=== PATIENT | female | born 1960 | race Caucasian/White ===

== ENCOUNTER 2019-02-21 08:02 | Day surgery (SDC) | payer BC ==
[~2019-02-21 08:02] MED LIST: Lactated Ringers 1,000 ML IV SCH; Lidocaine 1%/Sod Bicarbonate in NS 8.4% 1 ML Syringe IDERM PRN; Sodium Chloride 0.9% 10 ML Syringe FLUSH PRN
--- NOTE | 2019-02-21 08:33 | PCM.PREANE ---
Preanesthetic Assessment - Procedure Proposed Procedure: subfascal mid urethral sling - Anesthesia/Transfusion/Family Hx Anesthesia History: Prior Anesthesia Without Reaction (sometimes bp is low) Family History of Anesthesia Reaction: No Transfusion History: No Prior Transfusion(s) - Review of Systems General: No Symptoms Pulmonary: No Symptoms Cardiovascular: No Symptoms Gastrointestinal: Abdominal Pain (left lower abd pain from rectal prolapse surgery) Neurological: No Symptoms, Numbness (down left leg and foot) Other: Reports: None, Depression, Anxiety - Physical Assessment NPO Status Date: 02/20/19 (sip with meds this am) NPO Status Time: 21:30 Pulse: 67 O2 Sat by Pulse Oximetry: 96 Respiratory Rate: 16 Blood Pressure: 102/37 Temperature: 97.5 F Height: 5 ft 10 in Weight: 63 kg ASA Class: 2 Mental Status: Alert & Oriented x3 Airway Class: Mallampati = 1 Dentition: Reports: Normal Dentition Thyro-Mental Finger Breadths: 3 Mouth Opening Finger Breadths: 3 ROM/Head Extension: Full Lungs: Clear to Auscultation, Normal Respiratory Effort Cardiovascular: Regular Rate, Regular Rhythm, Murmurs - Lab Values: Laboratory Last Values WBC 5.79 K/mm3 (3.98-10.04) 02/19/19 09:08 RBC 3.83 M/mm3 (3.98-5.22) L 02/19/19 09:08 Hgb 11.9 gm/L (11.2-15.7) 02/19/19 09:08 Hct 35.8 % (34.1-44.9) 02/19/19 09:08 MCV 93.5 fl (79.4-94.8) 02/19/19 09:08 MCH 31.1 pg (25.6-32.2) 02/19/19 09:08 MCHC 33.2 g/dl (32.2-35.5) 02/19/19 09:08 RDW Std Deviation 46.0 fL (36.4-46.3) 02/19/19 09:08 Plt Count 198 K/mm3 (182-369) 02/19/19 09:08 MPV 12.0 fl (9.4-12.3) 02/19/19 09:08 Neut % (Auto) 64.5 % (34.0-71.1) 02/19/19 09:08 Lymph % (Auto) 23.5 % (19.3-51.7) 02/19/19 09:08 [place] % (Auto) 7.6 % (4.7-12.5) 02/19/19 09:08 Eos % (Auto) 4.1 (0.7-5.8) 02/19/19 09:08 Baso % (Auto) 0.3 % (0.1-1.2) 02/19/19 09:08 Neut # (Auto) 3.73 K/mm3 (1.56-6.13) 02/19/19 09:08 Lymph # (Auto) 1.36 K/mm3 (1.18-3.74) 02/19/19 09:08 [place] # (Auto) 0.44 K/mm3 (0.24-0.36) H 02/19/19 09:08 Eos # (Auto) 0.24 K/mm3 (0.04-0.36) 02/19/19 09:08 Baso # (Auto) 0.02 K/mm3 (0.01-0.08) 02/19/19 09:08 Creatinine 0.9 mg/dL (0.55-1.02) 02/19/19 09:08 Est Cr Clr Drug Dosing TNP 02/19/19 09:08 Estimated GFR (MDRD) > 60 mL/min (>60) 02/19/19 09:08 Urine Color Yellow (Yellow) 02/19/19 09:08 Urine Appearance Clear (Clear) 02/19/19 09:08 Urine pH 6.0 (5.0-8.0) 02/19/19 09:08 Ur Specific [place] > or = 1.030 (1.005-1.030) 02/19/19 09:08 Urine Protein 1+ (Negative) H 02/19/19 09:08 Urine Glucose (UA) Negative (Negative) 02/19/19 09:08 Urine Ketones Negative (Negative) 02/19/19 09:08 Urine Occult Blood Trace-lysed (Negative) H 02/19/19 09:08 Urine Nitrite Negative (Negative) 02/19/19 09:08 Urine Bilirubin 1+ (Negative) H 02/19/19 09:08 Urine Urobilinogen 1.0 (0.2-1.0) 02/19/19 09:08 Ur Leukocyte Esterase Negative (Negative) 02/19/19 09:08 - Allergies Allergies/Adverse Reactions: Allergies Allergy/AdvReac Type Severity Reaction Status Date / Time No Known Allergies Allergy Verified 02/20/19 14:34 - Blood Blood Available: No - Anesthesia Plan Pre-Op Medication Ordered: Beta Gianna Beta Gianna: Metoprolol Med Last Dose Date: 02/21/19 Med Last Dose Time: 06:30 - Acknowledgements Anesthesia Type Planned: General Anesthesia Pt an Appropriate Candidate for the Planned Anesthesia: Yes Alternatives and Risks of Anesthesia Discussed w Pt/Guardian: Yes Pt/Guardian Understands and Agrees with Anesthesia Plan: Yes PreAnesthesia Questionnaire HEENT History: Reports: None Cardiovascular History: Reports: Other (See Below) Other Cardiovascular History: mitral valve repair, aflutter, bacterial endocarditis, DVT, angiogram Respiratory History: Reports: None Gastrointestinal History: Reports: None, Other (See Below) Other Gastrointestinal History: gastric ulcer,rectal prolapse with repair Genitourinary History: Reports: Other (See Below) Other Genitourinary History: hematuria, breast implants 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: Reports: None Musculoskeletal History: Reports: Other (See Below) Other Musculoskeletal History: bilateral carpal tunnel syndrom, right hand degenerative joint disease, lumbar facet arthritis, sciatica, lumbar disc bulge Neurological History: Reports: Migraines, Other (See Below) Other Neuro History: lumbar degenerative disc disease, scoliosis, radicular lumbar pain Psychiatric History: Reports: Anxiety, Depression Endocrine/Metabolic History: Reports: None, Osteopenia Hematologic History: Reports: Other (See Below) Other Hematologic History: blood clotting disorder Immunologic History: Reports: None Oncologic (Cancer) History: Reports: None Dermatologic History: Reports: None - Past Surgical History Head Surgeries/Procedures: Reports: None HEENT Surgical History: Reports: LASIK Cardiovascular Surgical History: Reports: Other (See Below) (mitral valve repair 2001) Respiratory Surgical History: Reports: None GI Surgical History: Reports: Appendectomy, Colonoscopy, EGD Female Surgical History: Reports: None, Breast Implant, Cystoscopy, Tubal Ligation Endocrine Surgical History: Reports: None Neurological Surgical History: Reports: None Musculoskeletal Surgical History: Reports: Carpal Tunnel, Other (See Below) Other Musculoskeletal Surgeries/Procedures:: right and left carpal tunnel release, bunionectomy Oncologic Surgical History: Reports: None Dermatological Surgical History: Reports: None - SUBSTANCE USE Smoking Status *Q: Former Smoker (quit 1994) Tobacco Use Within Last Twelve Months: No Second Hand Smoke Exposure: No Days Per Week of Alcohol Use: 1 (rare) Recreational Drug Use History: No - HOME MEDS Home Medications: Home Meds [place]-3 Fatty Acids/Fish Oil [Fish Oil Softgel] 2,000 mg PO DAILY 10/04/14 [ History] Omeprazole 20 mg PO ASDIRECTED 10/04/14 [History] Zolpidem [Ambien] 10 mg PO BEDTIME PRN 10/04/14 [History] Aspirin [Halfprin] 81 mg PO DAILY 09/26/18 [History] Fluticasone Propionate [Flonase] 1 dose NASBOTH DAILY 09/26/18 [History] Estrogens, Conjugated [Premarin Vaginal Crm] 1 dose VAG BEDTIME 02/20/19 [ History] Gabapentin [Neurontin] 300 mg PO Q12H 02/20/19 [History] Metoprolol Tartrate 50 mg PO BID 02/20/19 [History] Polyvinyl Alcohol/Povidone [[place] Eye Drops] 1 drop EYEBOTH TID 02/20/19 [ History] Rosuvastatin [Crestor] 10 mg PO DAILY 02/20/19 [History] buPROPion [Wellbutrin SR] 300 mg PO DAILY 02/20/19 [History] - CURRENT (IN HOUSE) MEDS Current Meds: Current Medications Lactated Ringer's (Ringers, Lactated) 1,000 mls @ 125 mls/hr IV ASDIRECTED [place] Lidocaine/Sodium Bicarbonate (Buffered Lidocaine 1% In Ns 8.4%) 0.25 ml IDERM ONETIME PRN PRN Reason: Prior to IV Start Sodium Chloride (Saline Flush) 10 ml FLUSH ASDIRECTED PRN PRN Reason: Keep Vein Open Stop: 02/21/19 23:00
[2019-02-21] MEDS ORDERED: Lidocaine 1% with EPINEPHrine 1:100,000 20 ML MDV ONE (09:33)
[2019-02-21] MEDS ORDERED: Lactated Ringers 1,000 ML ONE (09:37)
[2019-02-21] MEDS ORDERED: ceFAZolin 1 GM Vial ONE (09:37)
[2019-02-21] MEDS ORDERED: Propofol 200 MG/20 ML SDV ONE (09:37)
[2019-02-21] MEDS ORDERED: Ondansetron 4 MG/2 ML SDV ONE ×2 (09:37→10:05)
[2019-02-21] MEDS ORDERED: Lidocaine 1% 4 ML ONE (09:37)
[2019-02-21] MEDS ORDERED: Rocuronium 50 MG/5 ML Vial ONE (09:37)
[2019-02-21] MEDS ORDERED: fentaNYL 250 MCG/5 ML SDV ONE (09:38)
[2019-02-21] MEDS ORDERED: Midazolam 1 MG/ML 2 ML SDV ONE (09:38)
[2019-02-21] MEDS ORDERED: ePHEDrine/Normal Saline 25 MG/5 ML Syringe ONE (09:59)
[2019-02-21] MEDS ORDERED: Dexamethasone 4 MG/ML 5 ML MDV ONE (10:05)
[2019-02-21] MEDS: Sodium Chloride 0.9% 50 ML SDV ONE ×2 (10:19→10:20)
[2019-02-21] MEDS ORDERED: Neostigmine Methylsulfate 1 MG/ML 5 ML Syringe ONE (10:26)
[2019-02-21] MEDS ORDERED: Acetaminophen/oxyCODONE 325-5 MG Tab PO PRN (10:28)
--- NOTE | 2019-02-21 10:33 | PCM.OPNOTE ---
- General Post-Op/Procedure Note Date of Surgery/Procedure: 02/21/19 Operative Procedure(s): Subfascial mid-urethral sling Findings: Grade 1 cystocele, grade 1 uterine descensus, grade 1 rectocele Pre Op Diagnosis: Stress urinary incontinence Post-Op Diagnosis: Same Anesthesia Technique: General ET Tube Other Anesthesia Type: Lidocaine quarter percent with [id number] mL total Primary Surgeon: Nik Gallegos Anesthesia Provider: Rosmery Murphy Fluid Replacement, Intraop: 1,200 EBL in mLs: 5 Complications: None Condition: Good Free Text/Narrative:: Surgery duration: 15 minutes Procedure: The patient was taken the operating room and placed in supine position on the operating table. She was adequately consented for the procedure. She was given 2 g of Ancef preoperatively for infection prophylaxis and had sequential compression stockings in place for DVT prophylaxis. She had voided electron microscopist to the operating room. She was given general endotracheal anesthesia. She was placed in the dorsal lithotomy position. Her bladder was again drained with a red rubber catheter. A few cc of normal urine were removed. The epithelium overlying the urethra was grasped approximately 1 cm from the urethral meatus and approximately 2 cm cephalad from there with Allis clamps. The area of the skin overlying the medial aspect of the obturator foramen on each side just posterior to the origin the abductor longus muscle was marked with a marking pen. These 2 areas and the sub-fascial layer of the vaginal were then infiltrated with lidocaine quarter percent with epinephrinetotal of approximately 10 mL was used. incisions made in the epithelium overlying the urethra and 2 small stab wounds 3 mm in length were made in the 2 areas of the panty line of the patient. The subfascial planes were adequately dissected bilaterally to allow placement of the mesh. The helical adapter was then placed through the obturator on patient's left side, then brought out through the vaginal subfascial plane. Mesh was attached to it and then was pulled back through the obturator foramen. Same was done on the right side. Mesh was then snugged up to 8 Dilator 15 mm in diameter which was was used as a spacer to place the mesh in a tension-free position. At this point the mesh was cut off at the skin surface and the dilator was removed. The midline epithelium was closed with a short running suture of 3-0 Monocryl. Skin incisions were closed with Dermabond skin glue. These bladder was filled with approximately 240 cc of normal saline to facilitate voiding and therefore discharged home. The patient was returned to supine position, awakened from general endotracheal anesthesia and was discharged from operating room in good condition
[2019-02-21] MEDS ORDERED: Ketorolac 30 MG/ML SDV ONE (10:34)
[2019-02-21] MEDS ORDERED: fentaNYL 100 MCG/2 ML SDV IVPUSH PRN (10:47)
[2019-02-21] MEDS ORDERED: Ondansetron 4 MG/2 ML SDV IVPUSH PRN (10:47)
--- NOTE | 2019-02-21 10:49 | PCM.POSTAN ---
POST ANESTHESIA ASSESSMENT - MENTAL STATUS Mental Status: Alert, Oriented - VITAL SIGNS Pulse Rate: 68 SaO2: 96 Resp Rate: 13 Blood Pressure: 89/61 Temperature: 37.5 C - RESPIRATORY Respiratory Status: Respiratory Rate WNL, Airway Patent, O2 Saturation Stable, Supplemental Oxygen - CARDIOVASCULAR CV Status: Pulse Rate WNL, Blood Pressure Stable - GASTROINTESTINAL GI Status: No Symptoms - PAIN Pain Score: 0 - POST OP HYDRATION Hydration Status: Adequate & Stable
--- NOTE | 2019-02-21 12:41 | PCM48HPAN ---
Post Anesthesia Note - EVALUATION WITHIN 48HRS OF ANESTHETIC Vital Signs in Normal Range: Yes Patient Participated in Evaluation: Yes Respiratory Function Stable: Yes Airway Patent: Yes Cardiovascular Function Stable: Yes Hydration Status Stable: Yes Pain Control Satisfactory: Yes Nausea and Vomiting Control Satisfactory: Yes Mental Status Recovered: Yes
[2019-02-21 13:23] VITALS: BP 108/35
== END 2019-02-21 12:23 | disposition home or self-care (01) ==
LOC: JD.SDS 08:02
PROVIDERS: ATTEND Obstetrics & Gynecology
DX: N39.3 Stress incontinence (female) (male) (principal); N81.2 Incomplete uterovaginal prolapse; N36.2 Urethral caruncle; E78.00 Pure hypercholesterolemia, unspecified; G43.909 Migraine, unspecified, not intractable, without status migrainosus; F32.9 Major depressive disorder, single episode, unspecified; F41.9 Anxiety disorder, unspecified; Z79.82 Long term (current) use of aspirin; Z79.899 Other long term (current) drug therapy; Z87.891 Personal history of nicotine dependence
CPT/HCPCS: 36415; 57288; 81003; 82565; 85025; J0690; J1100; J1885; J2001; J2250; J2405; J2704; J2710; J3010; J7050; J7120; 00860; C1771

== ENCOUNTER 2020-04-12 06:03 | Emergency (ER) | payer BC ==
[2020-04-12 06:23] VITALS: BP 134/76; PULSE 101
--- NOTE | 2020-04-12 06:52 | EDM.PDOC ---
ED HPI GENERAL MEDICAL PROBLEM - General Chief Complaint: Chest Pain Stated Complaint: HEART PALPITATIONS/POST HEART SURGERY Time Seen by Provider: 04/12/20 06:20 Source of Information: Reports: Patient, Family () History Limitations: Reports: No Limitations - History of Present Illness INITIAL COMMENTS - FREE TEXT/NARRATIVE: Mrs. 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 She was discharged home on 04/06/2020. She now presents to the ED stating that she was awoken at 02:00 this morning with pressure felt across her chest, dyspnea, and irregular palpitations. No diaphoresis, nausea, or sense of impending doom. No prior similar symptoms. The patient states that she had taken a Tylenol around 01:45 for a slight headache, but did not take any medications after the onset of her acute symptoms. Here in the ED, the patient is found to be slightly tachycardic at 101 bpm, and slightly tachypneic at 22rpm. She is afebrile, saturating 96% on room air. Other than recent constipation, the patient denies recent fever, chills, sore throat, ear pain, nasal or sinus congestion, cough, dyspnea, chest pain, palpitations, nausea, vomiting, diarrhea, abdominal pain, urinary symptoms, recent weight gain or weight loss, recent bloody bowel movements or black bowel movements, recent joint aches, headaches, or rashes. The patient's PCP is Dr. Maia Olivera. Her Cushion Sewer is Dr. Boyd Burk. Her Cardiothoracic Surgeon is Dr. Nael Hancock. Her pain manager of environmental services is Dr. Abhay Quiroz. Treatments CRATE TIER: Reports: Acetaminophen Mid-Sternal Chest Pain Score (Numeric/FACES): 5 - Related Data Allergies Allergy/AdvReac Type Severity Reaction Status Date / Time No Known Allergies Allergy Verified 04/12/20 06:13 Home Meds: Home Meds [place]-3 Fatty Acids/Fish Oil [Fish Oil Softgel] 2,000 mg PO DAILY 10/04/14 [History] Omeprazole 20 mg PO ASDIRECTED 10/04/14 [History] Zolpidem [Ambien] 10 mg PO BEDTIME PRN 10/04/14 [History] Aspirin [Halfprin] 81 mg PO DAILY 09/26/18 [History] Fluticasone Propionate [Flonase] 1 dose NASBOTH DAILY 09/26/18 [History] Estrogens, Conjugated [Premarin Vaginal Crm] 1 dose VAG BEDTIME 02/20/19 [History] Rosuvastatin [Crestor] 10 mg PO DAILY 02/20/19 [History] buPROPion [Wellbutrin SR] 300 mg PO DAILY 02/20/19 [History] Acetaminophen/oxyCODONE [Percocet 325-5 MG] 1 tab PO Q4H PRN tablet 02/21/19 [R x] Ibuprofen 600 mg PO Q4HR PRN #30 tablet 02/21/19 [Rx] Past Medical History Cardiovascular History: Reports: Blood Clots/VTE/DVT (upper extremity x 2, assoc w/ PICC lines), High Cholesterol, Other (See Below) (Endocarditis 2001, 2009) Gastrointestinal History: Reports: PUD, Other (See Below) (Rectal prolapse, s/p repair) Musculoskeletal History: Reports: Back Pain, Chronic (Scoliosis due to DDD) Psychiatric History: Reports: Anxiety, Depression Endocrine/Metabolic History: Reports: Osteopenia (untreated) - Past Surgical History HEENT Surgical History: Reports: HERLINDA Cardiovascular Surgical History: Reports: Cardiac Ablation (for A-flutter, 03/22/[address], [facility]), Valve Replacement (bovine mitral valve, 03/22/2020, [facility]), Other (See Below) (Mitral valve repair 2001, Tricuspid valve repair 03/22/[address], [facility] [place]. Coroonary angiogram x 2.) GI Surgical History: Reports: Appendectomy, Colonoscopy, EGD Female Surgical History: Reports: Breast Implant (bilateral), Cystoscopy, Tubal Ligation, Other (See Below) (Bladder sling) Musculoskeletal Surgical History: Reports: Carpal Tunnel (bilateral) Social & Family History - Family History Family Medical History: Noncontributory - Tobacco Use Smoking Status *Q: Former Smoker Years of Tobacco use: 12 Packs/Tins Daily: 2 Month/Year Tobacco Last Used: Quit Oct 1991 Second Hand Smoke Exposure: No - Caffeine Use Caffeine Use: Reports: None - Alcohol Use Alcohol Use History: Yes Alcohol Use Frequency: Socially - Recreational Drug Use Recreational Drug Use: No - Living Situation & Occupation Living situation: Reports: , with Spouse 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 ED EXAM, GENERAL - Physical Exam Exam: See Below Exam Limited By: No Limitations General Appearance: Alert, WD/WN, No Apparent Distress Eye Exam: Bilateral Eye: EOMI, Normal Inspection Ears: Normal External Exam, Hearing Grossly Normal Nose: Normal Inspection Throat/Mouth: Normal Inspection, Normal Lips, Normal Voice, No Airway Compromise Head: Atraumatic, Normocephalic Neck: Normal Inspection, Full Range of Motion Respiratory/Chest: No Respiratory Distress, Lungs Clear, Normal Breath Sounds, No Accessory Muscle Use Cardiovascular: Normal Peripheral Pulses, No Edema, No Gallop, No JVD, No Murmur, No Rub, Other (Regularly irregular) Peripheral Pulses: 3+: Radial (L), Radial (R) GI/Abdominal: Normal Bowel Sounds, Soft, Non-Tender, No Organomegaly, No Distention, No Abnormal Bruit, No Mass (Female) Exam: Deferred Rectal (Female) Exam: Deferred Back Exam: Normal Inspection, Full Range of Motion, NT Extremities: Normal Inspection, Normal Range of Motion, No Pedal Edema, Normal Capillary Refill Neurological: Alert, Oriented, Normal Cognition, No Motor/Sensory Deficits Psychiatric: Normal Affect Skin Exam: Warm, Dry, Intact, Normal Color, No Rash EKG INTERPRETATION EKG Date: 04/12/20 Time: 06:12 Rhythm: NSR (with bigeminy) Rate (Beats/Min): 99 [place]: Normal P-Wave: Present (Short MO interval) QRS: RBBB (Early transition) ST-T: Normal (ST depressions and T-wave inversions V2-V5) QT: Prolonged (QTc 506 ms) Comparison: Change From Previous EKG (Was in NSR on 02/21/2019) Course - Vital Signs Last Recorded V/S: Last Vital Signs Temp 36.4 C 04/12/20 06:15 Pulse 101 H 04/12/20 06:15 Resp 22 H 04/12/20 06:15 BP 134/76 04/12/20 06:15 Pulse Ox 96 04/12/20 06:15 - Orders/Labs/Meds Orders: Active Orders 24 hr Category Date Time Status EKG Documentation Completion [RC] STAT Care 04/12/20 06:13 Active Sodium Chloride 0.9% [Normal Saline] 1,000 ml Med 04/12/20 07:30 Active IV ASDIRECTED Sodium Chloride 0.9% [Normal Saline] 100 ml Med 04/12/20 08:15 Active IV ASDIRECTED Sodium Chloride 0.9% [Saline Flush] Med 04/12/20 08:02 Active 10 ml FLUSH ONETIME PRN Medication Orders Sodium Chloride (Normal Saline) 1,000 mls @ 150 mls/hr IV ASDIRECTED SALENA Last Admin: 04/12/20 08:07 Dose: 150 mls/hr Documented by: CHANI Sodium Chloride (Normal Saline) 100 mls @ 75 mls/hr IV ASDIRECTED [place] Last Admin: 04/12/20 08:18 Dose: 75 mls/hr Documented by: LC Sodium Chloride (Saline Flush) 10 ml FLUSH ONETIME PRN PRN Reason: IV FLUSH Last Admin: 04/12/20 08:18 Dose: 10 ml Documented by: LC Labs: Laboratory Tests 04/12/20 04/12/20 04/12/20 Range/Units 07:11 07:11 07:11 WBC 6.66 (3.98-10.04) K/mm3 RBC 3.39 L (3.98-5.22) M/mm3 Hgb 9.6 L D (11.2-15.7) gm/dl Hct 31.9 L (34.1-44.9) % MCV 94.1 (79.4-94.8) fl MCH 28.3 (25.6-32.2) pg MCHC 30.1 L (32.2-35.5) g/dl RDW Std Deviation 51.6 H (36.4-46.3) fL Plt Count 302 D (182-369) K/mm3 MPV 8.9 L (9.4-12.3) fl Neutrophils % (Manual) 73 H (40-60) % Band Neutrophils % 0 (0-10) % Lymphocytes % (Manual) 10 L (20-40) % Atypical Lymphs % 0 % Monocytes % (Manual) 6 (2-10) % Eosinophils % (Manual) 11 H (0.7-5.8) % Basophils % (Manual) 0 L (0.1-1.2) Toxic Granulation Platelet Estimate Adequate Plt Morphology Comment Normal Hypochromasia 2+ moderate RBC Morph Comment Normal PT 10.9 (9.7-12.0) SECONDS INR 1.00 Sodium 140 (136-145) mEq/L Potassium 3.7 (3.5-5.1) mEq/L Chloride 104 (98-107) mEq/L Carbon Dioxide 25 (21-32) mEq/L Anion Gap 14.7 (5-15) BUN 11 (7-18) mg/dL Creatinine 0.7 (0.55-1.02) mg/dL Est Cr Clr Drug Dosing 86.52 mL/min Estimated GFR (MDRD) > 60 (>60) mL/min BUN/Creatinine Ratio 15.7 (14-18) Glucose 86 (80-115) mg/dL Calcium 8.8 (8.5-10.1) mg/dL Magnesium 1.9 (1.8-2.4) mg/dl Total Bilirubin 0.5 (0.2-1.0) mg/dL AST 23 (15-37) U/L ALT 47 (14-59) U/L Alkaline Phosphatase 185 H (46-116) U/L Troponin I 0.180 H* (0.00-0.056) ng/mL Total Protein 6.5 (6.4-8.2) g/dl Albumin 3.2 L (3.4-5.0) g/dl Globulin 3.3 gm/dL Albumin/Globulin Ratio 1.0 (1-2) Meds: Medications Generic Name Dose Route Start Last Admin Trade Name Freq PRN Reason Stop Dose Admin Sodium Chloride 1,000 mls @ 150 mls/hr 04/12/20 07:30 04/12/20 08:07 Normal Saline IV 150 mls/hr ASDIRECTED SALENA Administration Sodium Chloride 100 mls @ 75 mls/hr 04/12/20 08:15 04/12/20 08:18 Normal Saline IV 75 mls/hr ASDIRECTED [place] Administration Sodium Chloride 10 ml 04/12/20 08:02 04/12/20 08:18 Saline Flush FLUSH 10 ml ONETIME PRN Administration IV FLUSH Discontinued Medications Generic Name Dose Route Start Last Admin Trade Name Walker PRN Reason Stop Dose Admin Acetaminophen 650 mg 04/12/20 08:54 04/12/20 09:04 Tylenol PO 04/12/20 08:55 650 mg NOW ONE Administration Iopamidol 100 ml 04/12/20 08:02 04/12/20 08:18 Isovue-370 (76%) IVPUSH 04/12/20 08:03 100 ml ONETIME ONE Administration - Re-Assessments/Exams Free Text/Narrative Re-Assessment/Exam: 04/12/20 06:48 As above, the patient underwent a bovine mitral valve replacement, along with a tricuspid repair and ablation for atrial flutter on 03/22/2020. She now presents with irregular palpitations, chest pressure felt across her chest, and dyspnea. An ECG obtained at triage demonstrates rate controlled bigeminy. The likelihood of an acute coronary event is extremely small, as she had a clean coronary angiogram about a week prior to her cardiac surgery. I have ordered a work-up that includes blood work, a chest x-ray, and an ECG. 04/12/20 07:21 Because the patient recently underwent surgery, her d-dimer would be elevated and non-diagnostic, therefore I did not order a d-dimer, however, upon considering the case, we need to rule out a PE as the cause of her current symptoms. I have therefore ordered a CT angiogram of the chest, along with IV fluid. 04/12/20 08:02 2-view chest radiograph is read by Dr. Maurer as: 1. Small bilateral pleural effusions which are similar to prior chest x-ray. 2. Interval placement of prosthetic heart valves. 04/12/20 08:41 CT angiogram of the chest is read by Dr. Maurer as: 1. No findings of pulmonary embolism. 2. Prosthetic heart valves and sternotomy wires. 3. Bilateral pleural effusions which mostly appear to be loculated. 4. Bibasilar atelectasis. 04/12/20 09:42 The patient's INR returned subtherapeutic at 1.00. Discussed with Bette at [facility] at 09:29. Case then discussed with Dr. Burk, the patient's Cushion Sewer, at 09:33. He stated that the bigeminy is to be expected following the type of surgery that she had, and not to worry about it. He agreed that the patient's mildly elevated troponin is simply a remnant from her recent surgery. He noted that the patient is on amiodarone, which she should continue on, however, he is not happy that her INR is subtherapeutic. He asked that the patient call his nurse this afternoon, and he will take over the management of her Coumadin. When she calls, she is to have all of her medications in front of her. He will also go over an appropriate diet that she should be eating while on Coumadin. 04/12/20 09:53 Test results and my conversation with Dr. Burk discussed with the patient and her . As above, I will discharge the patient home. She is not to worry about her bigeminy or chest discomfort. She is to continue her current medications, as prescribed, presently. She is to call Dr. Burk's nurse this afternoon, in order to arrange for their taking over management of her Coumadin, and when she calls, she is to have all of her medications in front of her. The patient expressed understanding. Departure - Departure Time of Disposition: 09:54 Disposition: Home, Self-Care 01 Condition: Good Clinical Impression: Bigeminy, Musculoskeletal chest pain, Subtherapeutic international normalized ratio (INR) Referrals: Maia Olivera MD [Primary Care Provider] - Boyd Burk MD [Ordering Only Provider] - Abhay Quiroz MD [Physician] - Nael Hancock IV, MD [Ordering Only Provider] - Forms: ED Department Discharge Additional Instructions: You were seen in the emergency room after developing chest pressure, as of breath, and irregular palpitations. Work-up in the ER included blood work, a chest x-ray, a CT angiogram of your chest, and an ECG. Your work-up found that you are in bigeminy (where your heartbeats 1 normal beat, followed by a PVC, followed by a normal beat, followed by PVC, etc.) and your INR was found to be subtherapeutic at 1.00. The remainder of your work-up was unremarkable. Your case was discussed with your Cushion Sewer Dr. Burk. He recommended the followin. The bigeminy and chest discomfort are to be expected following the type of surgery that you had. 2. He recommended that you continue to take the medications that you are currently prescribed. 3. He would like to take over the management of your Coumadin. You are to call his nurse this afternoon to make such arrangements. He may wind up talking to himself tomorrow. If any other problems, please do not hesitate to return to the ER. Sepsis Event Note (ED) - Evaluation Sepsis Screening Result: No Definite Risk - Focused Exam Vital Signs: Vital Signs Temp Pulse Resp BP Pulse Ox 04/12/20 06:15 36.4 C 101 H 22 H 134/76 96 - My Orders Last 24 Hours: My Active Orders 04/12/20 06:13 EKG Documentation Completion [RC] STAT 04/12/20 07:30 Sodium Chloride 0.9% [Normal Saline] 1,000 ml IV ASDIRECTED 04/12/20 08:02 Sodium Chloride 0.9% [Saline Flush] 10 ml FLUSH ONETIME PRN 04/12/20 08:15 Sodium Chloride 0.9% [Normal Saline] 100 ml IV ASDIRECTED - Assessment/Plan Last 24 Hours: My Active Orders 04/12/20 06:13 EKG Documentation Completion [RC] STAT 04/12/20 07:30 Sodium Chloride 0.9% [Normal Saline] 1,000 ml IV ASDIRECTED 04/12/20 08:02 Sodium Chloride 0.9% [Saline Flush] 10 ml FLUSH ONETIME PRN 04/12/20 08:15 Sodium Chloride 0.9% [Normal Saline] 100 ml IV ASDIRECTED
[2020-04-12] MEDS ORDERED: Sodium Chloride 0.9% 1,000 ML IV SCH (07:30)
--- NOTE | 2020-04-12 07:48 | CR ---
Chest: PA and lateral views of the chest were obtained. Comparison: Prior chest x-ray of 09/21/10. Bilateral pleural effusions are seen. Findings are fairly stable from previous exam. Heart size and mediastinum are normal. Bony structures are within normal limits for the patient's age. 2 prosthetic heart valves are seen. Sternotomy wires are noted. Impression: 1. Small bilateral pleural effusions which are similar to prior chest x-ray. 2. Interval placement of prosthetic heart valves. Diagnostic code #3 This report was dictated in MDT
[2020-04-12] MEDS ORDERED: Iopamidol 755 Mg/ML 100 ML Bottle IVPUSH ONE (08:02)
[2020-04-12] MEDS ORDERED: Sodium Chloride 0.9% 10 ML Syringe FLUSH PRN (08:02)
[2020-04-12] MEDS ORDERED: Sodium Chloride 0.9% 100 ML IV SCH (08:15)
--- NOTE | 2020-04-12 08:37 | CT ---
CT chest Technique: Multiple axial sections of the chest were obtained. Intravenous contrast was utilized. Study has been performed as a pulmonary angiogram protocol. Findings: Previous sternotomy is noted with prosthetic heart valves. Bilateral pleural effusions are seen which mostly appear to be loculated. Pulmonary arteries are well-opacified. No filling defects are seen to indicate pulmonary embolism. Mediastinum and hilar regions show no adenopathy. No axillary adenopathy is seen. Bilateral breast prosthesis are noted. Visualized upper abdominal structures shows no discrete abnormality. Mild bibasilar atelectasis is noted. Lungs otherwise are clear. Bone window settings were reviewed. No acute osseous finding is seen. Impression: 1. No findings of pulmonary embolism. 2. Prosthetic heart valves and sternotomy wires. 3. Bilateral pleural effusions which mostly appear to be loculated. 4. Bibasilar atelectasis. Diagnostic code #3 Study was dictated in MDT
[2020-04-12] MEDS ORDERED: Acetaminophen 325 MG Tab PO ONE (08:54)
== END 2020-04-12 10:08 | disposition home or self-care (01) ==
LOC: JD.ED 06:03
DX: R07.89 Other chest pain (principal); R00.8 Other abnormalities of heart beat; R79.1 Abnormal coagulation profile; F41.9 Anxiety disorder, unspecified; F32.9 Major depressive disorder, single episode, unspecified; Z87.11 Personal history of peptic ulcer disease; Z87.891 Personal history of nicotine dependence; Z79.899 Other long term (current) drug therapy; Z79.82 Long term (current) use of aspirin; Z86.718 Personal history of other venous thrombosis and embolism
CPT/HCPCS: 36415; 71046; 71275; 80053; 83735; 84484; 85007; 85027; 85610; 93005; 96360; 96361; 99285; A9270; J7030; J7050; Q9967

== ENCOUNTER 2022-06-29 09:16 | Day surgery (SDC) | payer BC ==
[~2022-06-29 09:16] MED LIST changes: +Sodium Chloride 0.9% 10 ML Syringe FLUSH SCH
[2022-06-29] MEDS ORDERED: Ondansetron 4 MG/2 ML SDV IVPUSH PRN (10:10)
[2022-06-29] MEDS ORDERED: fentaNYL 100 MCG/2 ML SDV IVPUSH PRN (10:10)
[2022-06-29 10:54] VITALS: PULSE 60
[2022-06-29] MEDS ORDERED: Lidocaine 1% 10 ML MDV ONE (11:19)
[2022-06-29] MEDS ORDERED: Bupivacaine 0.5% 10 ML SDV ONE (11:20)
[2022-06-29] MEDS ORDERED: Midazolam 1 MG/ML 2 ML SDV ONE (11:21)
[2022-06-29] MEDS ORDERED: Lidocaine 1% 2 ML ONE (11:21)
[2022-06-29] MEDS ORDERED: fentaNYL 100 MCG/2 ML SDV ONE (11:21)
[2022-06-29] MEDS ORDERED: Bupivacaine 0.5% 30 ML SDV ONE (11:21)
[2022-06-29] MEDS ORDERED: Propofol 200 MG/20 ML SDV ONE (11:22)
[2022-06-29 14:15] VITALS: BP 107/69
== END 2022-06-29 14:08 | disposition home or self-care (01) ==
LOC: JD.SDS 09:16
PROVIDERS: ATTEND Podiatrist Foot & Ankle Surgery
DX: M21.612 Bunion of left foot (principal); M20.12 Hallux valgus (acquired), left foot; I48.92 Unspecified atrial flutter; E78.5 Hyperlipidemia, unspecified; F32.A Depression, unspecified; M20.22 Hallux rigidus, left foot; F41.9 Anxiety disorder, unspecified; G43.909 Migraine, unspecified, not intractable, without status migrainosus; M85.80 Other specified disorders of bone density and structure, unspecified site; Z79.899 Other long term (current) drug therapy; Z88.8 Allergy status to other drugs, medicaments and biological substances; Z88.5 Allergy status to narcotic agent; Z98.890 Other specified postprocedural states; Z87.891 Personal history of nicotine dependence
CPT/HCPCS: 01480; 76000; 76000-26; 87641; C1713; J2250; J2704; J3010; J3490; J7120